=== PATIENT | female | born 1965 | race Caucasian/White ===

== ENCOUNTER 2016-11-27 10:29 | Emergency (ER) | payer OTHER ==
[2016-11-27] MEDS ORDERED: NITROSTAT SL PRN (10:39)
--- NOTE | 2016-11-27 10:42 | DR.GENAD ---
HPI - Complaint/Symptoms Chief Complaint Doctors Comments: Patient presented to the ED secondary to sharp pain in the chest she denies having cardiopulmonary disease. She was seen by hse specialist Dr Flaherty and had a cath one year ago and everything was fine. She admits to right ear pain PMH - PMH Past Medical History: Diabetes Past Surgical History: Yes Surgical History: [employer] Surgery, Tonsillectomy - Family History Family Medical History: Cancer - Social History Do you use any recreational Drugs:: No ROS - Review of Systems Constitutional: negative: Chills Eyes: No Symptoms Reported ENTM: No Symptoms Reported Respiratoy: No Symptoms Reported Cardiovascular: No Symptoms Reported Gastrointestinal/Abdominal: No Symptoms Reported Genitourinary: No Symptoms Reported Neurological: No Symptoms Reported Musculoskeletal: Chest wall, Other (right ear) Integumentary: No Symptoms Reported Hematologic/Lymphatic: No Symptoms Reported Endocrine: No Symptoms Reported Psychiatric: No Symptoms Reported All Other Systems: Reviewed and Negative PE - Vital Signs Vitals: Temperature 97.7 F Pulse Rate 89 Respiratory Rate 22 Blood Pressure 145/87 O2 Sat by Pulse Oximetry 99 - General Limitations: No Limitations General Appearance: Alert, In No Apparent Distress - Head Head Exam: Normal Inspection, Atraumatic - Eyes Eye exam: Normal Appearance, PERRL, EOMI - ENT ENT Exam: Normal Exam External Ear Exam: Normal External Inspection TM/Canal Exam: Bilateral Normal Nose Exam: Normal Nose Exam Mouth Exam: Normal Inspection Throat Exam: Normal Inspection - Neck Neck Exam: Normal Inspection - Chest Chest Inspection: Normal Inspection - Respiratory Respiratory Exam: Normal Lung Sounds Bilat Respiratory Exam: Bilateral Clear to Auscultation - Cardiovascular Cardiovascular Exam: Regular Rate, Normal Rhythm - Abdominal Exam Abdominal Exam: Normal Inspection, Normal Bowel Sounds Abdominal Tenderness: negative: RUQ, RLQ, LUQ, LLQ, Epigastrium, Suprapubic, Diffuse, Mild, Moderate, Severe, Other - Extremities Extremities Exam: Normal Inspection - Back Back Exam: Normal Inspection, Full ROM - Neurologic Neurological Exam: Alert, Oriented X3, CN II-XII Intact - Psychiatric Psychiatric Exam: Normal Affect, Normal Mood - Skin Skin Exam: Warm, Dry, Intact Course - Reevaluation 1st: Improved ROR - Labs Reviewed Laboratory Results Reviewed?: Yes (Strep positive) Result Diagrams: 11/27/16 10:50 11/27/16 10:50 Laboratory: WBC 5.0 X10^3/uL (3.6-10.0) 11/27/16 10:50 RBC 4.78 X10^6/uL (3.5-5.4) 11/27/16 10:50 Hgb 14.3 g/dL (12.0-16.0) 11/27/16 10:50 Hct 42.5 % (36.0-47.0) 11/27/16 10:50 MCV 88.9 fL (80.0-100.0) 11/27/16 10:50 MCH 29.8 pg (27.0-34.0) 11/27/16 10:50 MCHC 33.6 g/dL (33.0-35.0) 11/27/16 10:50 RDW 14.4 % (11.6-16.5) 11/27/16 10:50 Plt Count 146 X10^3/uL (150.0-450.0) L 11/27/16 10:50 MPV 10.1 fL (7.4-11.0) 11/27/16 10:50 Neut % 60.4 % (42.0-75.0) 11/27/16 10:50 Lymph % 26.5 % (21.0-51.0) 11/27/16 10:50 [place] % 10.4 % (0.0-13.0) 11/27/16 10:50 Eos % 1.9 % (0.9-2.9) 11/27/16 10:50 Baso % 0.8 % (0.2-1.0) 11/27/16 10:50 Neut # 3.0 x10^3/uL (2.2-4.8) 11/27/16 10:50 Lymph # 1.3 X10^3/uL (1.3-2.9) 11/27/16 10:50 [place] # 0.5 x10^3/uL (0.3-0.8) 11/27/16 10:50 Eos # 0.1 x10^3/uL (0.0-0.2) 11/27/16 10:50 Baso # 0.0 X10^3/uL (0.0-0.1) 11/27/16 10:50 Absolute Nucleated RBC 0.2 /100WBC 11/27/16 10:50 Sodium 135 mmol/L (136-145) L 11/27/16 10:50 Corrected Sodium 141 mmol/L (136-145) 11/27/16 10:50 Potassium 4.4 mmol/L (3.5-5.1) 11/27/16 10:50 Chloride 99 mmol/L (98-107) 11/27/16 10:50 Carbon Dioxide 32.6 mmol/L (21-32) H 11/27/16 10:50 BUN 9 mg/dL (7-18) 11/27/16 10:50 Creatinine 0.84 mg/dL (0.55-1.02) 11/27/16 10:50 Est GFR (MDRD) Af Amer > 60 (>60) 11/27/16 10:50 Est GFR (MDRD) Non-Af > 60 (>60) 11/27/16 10:50 Glucose 354 mg/dL (65-99) H 11/27/16 10:50 Calcium 9.2 mg/dL (8.5-10.1) 11/27/16 10:50 Corrected Calcium 10.0 mg/dL (8.5-10.1) 11/27/16 10:50 Total Bilirubin 0.60 mg/dL (0.2-1.0) 11/27/16 10:50 AST 55 Units/L (15-37) H 11/27/16 10:50 ALT 49 Units/L (12-78) 11/27/16 10:50 Alkaline Phosphatase 86 Units/L (46-116) 11/27/16 10:50 Total Protein 7.9 g/dL (6.4-8.2) 11/27/16 10:50 Albumin 3.0 g/dL (3.4-5.0) L 11/27/16 10:50 Globulin 4.9 g/dL (2.5-4.5) H 11/27/16 10:50 Albumin/Globulin Ratio 0.6 Ratio (1.1-2.1) L 11/27/16 10:50 Specimen Type Catherized urine 11/27/16 11:43 Urine Color Yellow (YELLOW) 11/27/16 11:43 Urine Appearance Clear (CLEAR) 11/27/16 11:43 Urine pH 6.5 (5.0 - 8.0) 11/27/16 11:43 Ur Specific [place] 1.015 (1.000-1.030) 11/27/16 11:43 Urine Protein 2+ (NEGATIVE) 11/27/16 11:43 Urine Glucose (UA) 4+ (NEGATIVE) 11/27/16 11:43 Urine Ketones Negative (NEGATIVE) 11/27/16 11:43 Urine Occult Blood 4+ (NEGATIVE) 11/27/16 11:43 Urine Nitrite Negative (NEGATIVE) 11/27/16 11:43 Urine Bilirubin Negative (NEGATIVE) 11/27/16 11:43 Urine Urobilinogen 1+ (NORMAL) 11/27/16 11:43 Ur Leukocyte Esterase Negative (NEGATIVE) 11/27/16 11:43 Urine RBC 5-8 /HPF (NEGATIVE) 11/27/16 11:43 Urine WBC None seen /HPF (NEGATIVE) 11/27/16 11:43 Ur Squamous Epith Cells Many /HPF (NEGATIVE) 11/27/16 11:43 Amorphous Sediment 1+ /HPF (NEGATIVE) 11/27/16 11:43 Urine Bacteria Negative /HPF (NEGATIVE) 11/27/16 11:43 Urine Mucus Few /HPF (NEGATIVE) 11/27/16 11:43 Ur Culture Indicated? No/not indicated 11/27/16 11:43 Streptococcus Screen Positive (NEGATIVE) A 11/27/16 11:01 - XRAY XRAY Interpreted by: Radiologist (The portable AP erect chest labeled 11:18am shows the cardiac silhouette to be enlarged. The pulmonary vasculature is congested compatible with moderate fluid overload. No overt interstitial edema nor pleural effusion is seen. No consolidation. Impression: cardiomegaly with CHF, no pneumonia or pleural effusion is seen.) - Diagnosis Discharge Problem: CHF (congestive heart failure) Qualifiers: Congestive heart failure type: unspecified congestive heart failure type Congestive heart failure chronicity: chronic Qualified Code(s): I50.9 - Heart failure, unspecified Pharyngitis Qualifiers: Pharyngitis/tonsillitis etiology: streptococcus Qualified Code(s): J02.0 - Streptococcal pharyngitis Otitis externa of right ear Qualifiers: Otitis externa type: unspecified type Chronicity: acute Qualified Code(s): H60.501 - Unspecified acute noninfective otitis externa, right ear - Discharge Plan Condition: Stable - Follow ups/Referrals Follow ups/Referrals: JUAN CARLOS VEGA [Nurse Practitioner] - 3 days - Instructions
[2016-11-27 10:47] VITALS: BP 145/87; BMI 70.8
[2016-11-27] MEDS ORDERED: ASPIRIN ONE (10:50)
[2016-11-27] MEDS ORDERED: ASPIRIN PO SCH (11:00)
[2016-11-27 11:06] LABS: BASOPHILS % (AUTO) 0.8 % (0.2-1.0); EOSINOPHILS # (AUTO) 0.1 x10^3/uL (0.0-0.2); EOSINOPHILS % (AUTO) 1.9 % (0.9-2.9); HEMATOCRIT 42.5 % (36.0-47.0); HEMOGLOBIN 14.3 g/dL (12.0-16.0); LYMPHOCYTES # (AUTO) 1.3 X10^3/uL (1.3-2.9); LYMPHOCYTES % (AUTO) 26.5 % (21.0-51.0); MEAN CORPUSCULAR HEMOGLOBIN 29.8 pg (27.0-34.0); MEAN CORPUSCULAR HGB CONC 33.6 g/dL (33.0-35.0); MEAN CORPUSCULAR VOLUME 88.9 fL (80.0-100.0); MEAN PLATELET VOLUME 10.1 fL (7.4-11.0); MONOCYTES # (AUTO) 0.5 x10^3/uL (0.3-0.8); MONOCYTES % (AUTO) 10.4 % (0.0-13.0); NEUTROPHILS % (AUTO) 60.4 % (42.0-75.0); PLATELET COUNT 146 X10^3/uL (150.0-450.0); RED BLOOD COUNT 4.78 X10^6/uL (3.5-5.4); RED CELL DISTRIBUTION WIDTH 14.4 % (11.6-16.5)
[2016-11-27] MEDS ORDERED: ZOFRAN INJ 4 MG VIAL IVP ONE (11:19)
[2016-11-27] MEDS ORDERED: ZOFRAN INJ 4 MG VIAL ONE (11:26)
[2016-11-27 11:27] LABS: ALANINE AMINOTRANSFERASE 49 Units/L (12-78); ALKALINE PHOSPHATASE 86 Units/L (46-116); ASPARTATE AMINO TRANSFERASE 55 Units/L (15-37); BLOOD UREA NITROGEN 9 mg/dL (7-18); CALCIUM 9.2 mg/dL (8.5-10.1); CARBON DIOXIDE 32.6 mmol/L (21-32); CHLORIDE 99 mmol/L (98-107); COR NA(FOR HYPERGLY) 141 mmol/L (136-145); CREATININE 0.84 mg/dL (0.55-1.02); SODIUM 135 mmol/L (136-145); TOTAL PROTEIN 7.9 g/dL (6.4-8.2); eGFR BLACK RACES > 60 (>60); eGFR NON BLACK RACES > 60 (>60)
--- NOTE | 2016-11-27 11:41 | RAD ---
History: Arrhythmia Study: Portable chest, comparison none Findings: Portable AP erect chest, comparison none Impression: Portable AP erect chest labeled 11:18 a.m. shows the cardiac silhouette to be enlarged. T he pulmonary vasculature is congested compatible with moderate fluid overload. No overt interstitial edema nor pleural effusion is seen. No consolidation is evident. No acute osseous abnormality is seen. Impression: 1. Cardiomegaly with CHF. 2. No pneumonia or pleural effusion is seen. Reported By:
[2016-11-27 12:10] LABS: BILIRUBIN,URINE NEGATIVE (NEGATIVE); BLOOD/HEMOGLOBIN,URINE 4+ (NEGATIVE); GLUCOSE, URINE 4+ (NEGATIVE); KETONES,URINE NEGATIVE (NEGATIVE); LEUKOCYTE ESTERASE ,URINE NEGATIVE (NEGATIVE); NITRITES,URINE NEGATIVE (NEGATIVE); PH,URINE 6.5 (5.0 - 8.0); PROTEIN,URINE 2+ (NEGATIVE); UROBILINOGEN,URINE 1+ (NORMAL)
[2016-11-27 12:18] LABS: APPEARANCE,URINE CLEAR (CLEAR); BACTERIA,URINE NEGATIVE /HPF (NEGATIVE); COLOR,URINE YELLOW (YELLOW); SQUAMOUS EPITHELIAL CELL,UR MANY /HPF (NEGATIVE)
[2016-11-27 12:19] LABS: AMORPHOUS SEDIMENT,UR 1+ /HPF (NEGATIVE); MUCUS,URINE FEW /HPF (NEGATIVE)
[2016-11-27] MEDS ORDERED: BICILLIN L-A IM ONE ×2 (13:13→13:30)
== END 2016-11-27 13:49 | disposition home or self-care (01) ==
LOC: ER 10:41
DX: I50.9 Heart failure, unspecified (principal); J02.0 Streptococcal pharyngitis; H60.501 Unspecified acute noninfective otitis externa, right ear; I51.7 Cardiomegaly
CPT/HCPCS: 36415; 71010; 80053; 81001; 85025; 87880; 93005; 93010; 96372; 99282; 99283; A4222; J0570; J2405

== ENCOUNTER 2019-08-26 17:49 | Inpatient (IN) ==
[2019-08-26] MEDS ORDERED: NS 1000 ML 1,000 ML ONE (18:06)
[2019-08-26] MEDS ORDERED: NS 1000 ML 1,000 ML IV ONE (18:10)
[2019-08-26] MEDS ORDERED: ZOFRAN INJ 4 MG VIAL IVP ONE (18:10)
[2019-08-26] MEDS ORDERED: ZOFRAN INJ 4 MG VIAL ONE (18:15)
[2019-08-26 18:25] LABS: ABG BASE EXCESS 2.3 mmol/L (-2.0-2.0)
[2019-08-26 18:26] LABS: ABG ALLEN TEST POS
[2019-08-26] MEDS ORDERED: TYLENOL 500 MG TAB EXTRA STRENGTH PO ONE (18:40)
[2019-08-26] MEDS ORDERED: ROCEPHIN VIAL 2 GRAMS IV ONE (18:57)
--- NOTE | 2019-08-26 18:58 | RAD ---
HISTORYSOBSTUDYCHEST, 1 VIEWCOMPARISONOctober [id number] trachea is midline. The cardiac silhouette is enlarged. Increased interstitial markings and bronchial wall thickening are noted. Left perihilar and left basilar infiltrate cannot be excludedIMPRESSIONCardiomegaly.Questionable left perihilar and left basilar infiltrate. Correlate clinically.Electronically signed by: JOEY ROWELL (Aug 26, 2019 18:57:26)
[2019-08-26] MEDS ORDERED: NS 100 ML IV + SPIKE MINIBAG* 100 ML IV ONE (19:02)
[2019-08-26] MEDS ORDERED: ROCEPHIN VIAL 2 GRAMS ONE (19:02)
[2019-08-26 19:21] LABS: BILIRUBIN,URINE 2+ (NEGATIVE); BLOOD/HEMOGLOBIN,URINE 3+ (NEGATIVE); GLUCOSE, URINE 4+ (NEGATIVE); KETONES,URINE 2+ (NEGATIVE); LEUKOCYTE ESTERASE ,URINE 1+ (NEGATIVE); NITRITES,URINE POSITIVE (NEGATIVE); PROTEIN,URINE 4+ (NEGATIVE); UROBILINOGEN,URINE 2+ (NORMAL)
[2019-08-26 19:36] LABS: BASOPHILS % (AUTO) 0.3 % (0.2-1.0); HEMATOCRIT 42.5 % (36.0-47.0); HEMOGLOBIN 14.5 g/dL (12.0-16.0); LYMPHOCYTES # (AUTO) 0.4 X10^3/uL (1.3-2.9); LYMPHOCYTES % (AUTO) 5.7 % (21.0-51.0); MEAN CORPUSCULAR HEMOGLOBIN 30.4 pg (27.0-34.0); MEAN CORPUSCULAR HGB CONC 34.1 g/dL (33.0-35.0); MEAN CORPUSCULAR VOLUME 89.1 fL (80.0-100.0); MEAN PLATELET VOLUME 9.7 fL (7.4-11.0); MONOCYTES # (AUTO) 0.4 x10^3/uL (0.3-0.8); MONOCYTES % (AUTO) 6.6 % (0.0-13.0); NEUTROPHILS # (AUTO) 5.9 x10^3/uL (2.2-4.8); NEUTROPHILS % (AUTO) 87.4 % (42.0-75.0); PLATELET COUNT 100 X10^3/uL (150.0-450.0); RED BLOOD COUNT 4.77 X10^6/uL (3.5-5.4); RED CELL DISTRIBUTION WIDTH 15.4 % (11.6-16.5); WHITE BLOOD COUNT 6.7 X10^3/uL (3.6-10.0)
[2019-08-26 19:48] LABS: APPEARANCE,URINE SLIGHTLY HAZY (CLEAR); COLOR,URINE AMBER (YELLOW)
[2019-08-26 19:49] LABS: BLOOD UREA NITROGEN 18 mg/dL (7-18); CARBON DIOXIDE 24.3 mmol/L (21-32); CHLORIDE 95 mmol/L (98-107); COR NA(FOR HYPERGLY) 137 mmol/L (136-145); CREATININE 0.98 mg/dL (0.55-1.02); SODIUM 130 mmol/L (136-145); TROPONIN I 0.02 ng/mL (0-1.5); eGFR NON BLACK RACES > 60 (>60)
[2019-08-26 19:49] LABS: SQUAMOUS EPITHELIAL CELL,UR FEW /HPF (NEGATIVE)
[2019-08-26 19:50] LABS: BACTERIA,URINE 1+ /HPF (NEGATIVE)
[2019-08-26 19:54] LABS: ALANINE AMINOTRANSFERASE 26 Units/L (12-78); ALBUMIN 2.9 g/dL (3.4-5.0); ALKALINE PHOSPHATASE 102 Units/L (46-116); ASPARTATE AMINO TRANSFERASE 47 Units/L (15-37); CKMB % 1.3 % (<4); COR CA(FOR HYPOALB) 9.9 mg/dL (8.5-10.1); CREATINE KINASE 80 Units/L (26-192); CREATINE KINASE MB < 1.0 ng/mL (0-4.0); LACTIC ACID 3.2 mmol/L (0.4-2.0); MAGNESIUM 1.4 mg/dL (1.7-2.9); TOTAL PROTEIN 8.1 g/dL (6.4-8.2)
[2019-08-26 20:29] LABS: MYCOPLASMA PNEUMONIAE IGM AB NEGATIVE (NEGATIVE)
--- NOTE | 2019-08-26 21:33 | DR.GENAD ---
HPI <Wiley Downs - Last Filed: 08/29/19 08:25> Time Seen Time Seen by Provider: 08/26/19 18:03 PCP Primary Care Physician: MARCELINO MACKEY Comment HPI Comment: Came hyperventilating, febrie, with nausea, diarrhea, weakness, loss of sense of taste, sister also is sick. Complaint/Symptoms Chief Complaint:: PT. C/O NAUSEA, DIARRHEA, FEVER, WEAKNESS AND GENERALIZED BODY ACHES. PT. DROWSY AT TIME OF TRIAGE AND UNABLE TO HOLD HER HEAD UP DUE TO WEAKNESS. SISTER STATES PT. HAS NOT BEEN EATING TODAY AND HAS LOST HER SENSE OF TASTE. COVID-19 Coronavirus risk:travel/contact w/high risk person: No Has patient experienced Coronavirus symptoms: Yes Coronavirus symptoms experienced: Fever Source History Provided: Patient Mode of Arrival Mode of Arrival: Wheelchair Timing Onset of Chief Complaint: 08/18/19 PMH <Wiley Downs - Last Filed: 08/29/19 08:25> PMH Past Medical History: Yes Past Medical History: Diabetes Past Surgical History: Yes Surgical History: [employer] Surgery and Tonsillectomy Family History History of Family Medical Conditions: Yes Family Medical History: Cancer Social History Does patient currently use any type of tobacco product: No Have you used tobacco products in the last 12 months: No Type of Tobacco Use: None Does any household member use tobacco: No Alcohol Use: None Do you use any recreational Drugs:: No Lives With: Family Lives Where: Home Travel Risk Coronavirus risk:travel/contact w/high risk person: No Has patient experienced Coronavirus symptoms: Yes Coronavirus symptoms experienced: Fever Infectious screening In the last 2 months have you had wt loss of >10#?: NO Have you had fever, night sweats or hemotysis?: No Have you traveled outside the country in the last 6 months?: No Isolation: Standard ROS <Wiley Downs - Last Filed: 08/29/19 08:25> Review of Systems Constitutional: See HPI Eyes: No Symptoms Reported ENTM: No Symptoms Reported Respiratoy: See HPI Cardiovascular: No Symptoms Reported Gastrointestinal/Abdominal: See HPI Genitourinary: No Symptoms Reported Neurological: No Symptoms Reported Musculoskeletal: No Symptoms Reported Integumentary: No Symptoms Reported Hematologic/Lymphatic: No Symptoms Reported Endocrine: No Symptoms Reported Psychiatric: No Symptoms Reported All Other Systems: Reviewed and Negative PE <Wiley Downs - Last Filed: 08/29/19 08:25> Vital Signs Vitals: Temperature 103 F Pulse Rate 143 Respiratory Rate 33 Blood Pressure [Left Arm] 133/80 Blood Pressure 151/68 O2 Sat by Pulse Oximetry 94 General Limitations: No Limitations General Appearance: Alert, Anxious, In Distress and Obese (Morbidly) Head Head Exam: Normal Inspection Eyes Eye exam: Normal Appearance ENT ENT Exam: Normal Exam and Mucous Membranes Dry External Ear Exam: Normal External Inspection TM/Canal Exam: Bilateral: Normal Nose Exam: Normal Nose Exam Mouth Exam: Normal Inspection Throat Exam: Normal Inspection Neck Neck Exam: Normal Inspection Chest Chest Inspection: Normal Inspection and Symmetric Chest Wall Rise Respiratory Respiratory Exam: Normal Lung Sounds Bilat, Accessory Muscle Use and Respiratory Distress Respiratory Exam: Bilateral: Clear to Auscultation Cardiovascular Cardiovascular Exam: Regular Rate and Normal Rhythm Abdominal Exam Abdominal Exam: Normal Inspection, Normal Bowel Sounds and Soft; negative D istention, Tenderness, Guarding, Rebound and Rigidity Extremities Extremities Exam: Normal Inspection; negative Edema Back Back Exam: Normal Inspection Neurologic Neurological Exam: Alert, Oriented X3 and CN II-XII Intact Psychiatric Psychiatric Exam: Normal Affect and Normal Mood Skin Skin Exam: Warm, Dry, Intact and Normal Color <Shawnee Driver - Last Filed: 08/26/19 23:46> Vital Signs Vitals: Temperature 103 F Pulse Rate 143 Respiratory Rate 33 Blood Pressure [Left Arm] 133/80 Blood Pressure 151/68 O2 Sat by Pulse Oximetry 94 COURSE <Wiley Downs - Last Filed: 08/29/19 08:25> Treatment Treatment: Awaiting remaining labs and radiology. Patient fits sepsis criteria, initial Lactate drawn, fluid bolus given, cultures and empiric Rocephin ordered. Care for patient endorsed to Dr. Driver at 9:00PM. <Shawnee Driver - Last Filed: 08/26/19 23:46> Treatment Treatment: [address] Carlisle Consultation Consultation Comments: s/w Dr Michaels who accepts admission ROR <Michaelgelacio Maejose a - Last Filed: 08/29/19 08:25> Labs Reviewed Result Diagrams: 08/29/19 04:59 08/29/19 04:59 Laboratory: 08/26/19 18:49 Urine,Catheterized Urine Culture - Final Klebsiella Pneumoniae 08/26/19 20:10 Blood Blood Culture - Preliminary 08/26/19 18:20 Blood Blood Culture - Preliminary WBC 6.7 X10^3/uL (3.6-10.0) 08/26/19 18:20 RBC 4.77 X10^6/uL (3.5-5.4) 08/26/19 18:20 Hgb 14.5 g/dL (12.0-16.0) 08/26/19 18:20 Hct 42.5 % (36.0-47.0) 08/26/19 18:20 MCV 89.1 fL (80.0-100.0) 08/26/19 18:20 MCH 30.4 pg (27.0-34.0) 08/26/19 18:20 MCHC 34.1 g/dL (33.0-35.0) 08/26/19 18:20 RDW 15.4 % (11.6-16.5) 08/26/19 18:20 Plt Count 100 X10^3/uL (150.0-450.0) L 08/26/19 18:20 MPV 9.7 fL (7.4-11.0) 08/26/19 18:20 Neut % (Auto) 87.4 % (42.0-75.0) H 08/26/19 18:20 Lymph % (Auto) 5.7 % (21.0-51.0) L 08/26/19 18:20 [place] % (Auto) 6.6 % (0.0-13.0) 08/26/19 18:20 Eos % (Auto) 0.0 % (0.9-2.9) L 08/26/19 18:20 Baso % (Auto) 0.3 % (0.2-1.0) 08/26/19 18:20 Neut # (Auto) 5.9 x10^3/uL (2.2-4.8) H 08/26/19 18:20 Lymph # (Auto) 0.4 X10^3/uL (1.3-2.9) L 08/26/19 18:20 [place] # (Auto) 0.4 x10^3/uL (0.3-0.8) 08/26/19 18:20 Eos # (Auto) 0.0 x10^3/uL (0.0-0.2) 08/26/19 18:20 Baso # (Auto) 0.0 X10^3/uL (0.0-0.1) 08/26/19 18:20 Absolute Nucleated RBC 0.2 /100WBC 08/26/19 18:20 Sample Site Rr 08/26/19 18:15 ABG pH 7.500 (7.35-7.45) H 08/26/19 18:15 ABG pCO2 32.0 mmHg (35.0-45.0) L 08/26/19 18:15 ABG pO2 63.0 mmHg (80.0-100.0) L 08/26/19 18:15 ABG HCO3 25.0 mmol/L (22-26) 08/26/19 18:15 ABG O2 Saturation 94.0 % (90-100) 08/26/19 18:15 ABG Base Excess 2.3 mmol/L (-2.0-2.0) H 08/26/19 18:15 [place] Test Pos 08/26/19 18:15 A-a Gradient 47.0 mmHg 08/26/19 18:15 FiO2 21.0 08/26/19 18:15 Blood Gas Comments Pt demetria well. elj/cdn 08/26/19 18:15 Sodium 130 mmol/L (136-145) L 08/26/19 19:25 Corrected Sodium 137 mmol/L (136-145) 08/26/19 19:25 Potassium 4.4 mmol/L (3.5-5.1) 08/26/19 19:25 Chloride 95 mmol/L (98-107) L 08/26/19 19:25 Carbon Dioxide 24.3 mmol/L (21-32) 08/26/19 19:25 BUN 18 mg/dL (7-18) 08/26/19 19:25 Creatinine 0.98 mg/dL (0.55-1.02) 08/26/19 19:25 Est GFR (MDRD) Af Amer > 60 (>60) 08/26/19 19:25 Est GFR (MDRD) Non-Af > 60 (>60) 08/26/19 19:25 Glucose 401 mg/dL (65-99) H 08/26/19 19:25 Lactic Acid 3.2 mmol/L (0.4-2.0) H 08/26/19 19:25 Calcium 9.0 mg/dL (8.5-10.1) 08/26/19 19:25 Corrected Calcium 9.9 mg/dL (8.5-10.1) 08/26/19 19:25 Magnesium 1.4 mg/dL (1.7-2.9) L 08/26/19 19:25 Total Bilirubin 2.40 mg/dL (0.2-1.0) H 08/26/19 19:25 AST 47 Units/L (15-37) H 08/26/19 19:25 ALT 26 Units/L (12-78) 08/26/19 19:25 Alkaline Phosphatase 102 Units/L (46-116) 08/26/19 19:25 Creatine Kinase 80 Units/L (26-192) 08/26/19 19:25 CK-MB (CK-2) < 1.0 ng/mL (0-4.0) 08/26/19 19:25 CK/CKMB % Calc 1.3 % (<4) 08/26/19 19:25 Troponin I 0.02 ng/mL (0-1.5) 08/26/19 19:25 Total Protein 8.1 g/dL (6.4-8.2) 08/26/19 19:25 Albumin 2.9 g/dL (3.4-5.0) L 08/26/19 19:25 Globulin 5.2 g/dL (2.5-4.5) H 08/26/19 19:25 Albumin/Globulin Ratio 0.6 Ratio (1.1-2.1) L 08/26/19 19:25 Specimen Type Catherized urine 08/26/19 18:49 Urine Color [place] (YELLOW) 08/26/19 18:49 Urine Appearance Slightly hazy (CLEAR) 08/26/19 18:49 Urine pH 6.0 (5.0 - 8.0) 08/26/19 18:49 Ur Specific [place] 1.015 (1.000-1.030) 08/26/19 18:49 Urine Protein 4+ (NEGATIVE) 08/26/19 18:49 Urine Glucose (UA) 4+ (NEGATIVE) 08/26/19 18:49 Urine Ketones 2+ (NEGATIVE) 08/26/19 18:49 Urine Occult Blood 3+ (NEGATIVE) 08/26/19 18:49 Urine Nitrite Positive (NEGATIVE) 08/26/19 18:49 Urine Bilirubin 2+ (NEGATIVE) 08/26/19 18:49 Urine Urobilinogen 2+ (NORMAL) 08/26/19 18:49 Ur Leukocyte Esterase 1+ (NEGATIVE) 08/26/19 18:49 Urine RBC 3-5 /HPF (0-3) A 08/26/19 18:49 Urine WBC 3-5 /HPF (0-5) 08/26/19 18:49 Ur Squamous Epith Cells Few /HPF (NEGATIVE) 08/26/19 18:49 Urine Bacteria 1+ /HPF (NEGATIVE) 08/26/19 18:49 Ur Culture Indicated? Yes/culture set up 08/26/19 18:49 Influenza Type A Ag Negative-presumptive (NEGATIVE) 08/26/19 18:48 Influenza Type B Ag Negative-presumptive (NEGATIVE) 08/26/19 18:48 Mycoplasma pneumon IgG Negative (NEGATIVE) 08/26/19 19:25 SARS-CoV-2 (PCR) Negative (NEGATIVE) 08/26/19 18:35 EKG [place]: Normal Rhythm: NSR Block: None Hypertrophy: None ST: Normal <Shawnee Driver - Last Filed: 08/26/19 23:46> Labs Reviewed Laboratory Results Reviewed?: Yes Laboratory: 08/26/19 18:49 Urine,Catheterized Urine Culture - Final Klebsiella Pneumoniae 08/26/19 20:10 Blood Blood Culture - Preliminary 08/26/19 18:20 Blood Blood Culture - Preliminary WBC 6.7 X10^3/uL (3.6-10.0) 08/26/19 18:20 RBC 4.77 X10^6/uL (3.5-5.4) 08/26/19 18:20 Hgb 14.5 g/dL (12.0-16.0) 08/26/19 18:20 Hct 42.5 % (36.0-47.0) 08/26/19 18:20 MCV 89.1 fL (80.0-100.0) 08/26/19 18:20 MCH 30.4 pg (27.0-34.0) 08/26/19 18:20 MCHC 34.1 g/dL (33.0-35.0) 08/26/19 18:20 RDW 15.4 % (11.6-16.5) 08/26/19 18:20 Plt Count 100 X10^3/uL (150.0-450.0) L 08/26/19 18:20 MPV 9.7 fL (7.4-11.0) 08/26/19 18:20 Neut % (Auto) 87.4 % (42.0-75.0) H 08/26/19 18:20 Lymph % (Auto) 5.7 % (21.0-51.0) L 08/26/19 18:20 [place] % (Auto) 6.6 % (0.0-13.0) 08/26/19 18:20 Eos % (Auto) 0.0 % (0.9-2.9) L 08/26/19 18:20 Baso % (Auto) 0.3 % (0.2-1.0) 08/26/19 18:20 Neut # (Auto) 5.9 x10^3/uL (2.2-4.8) H 08/26/19 18:20 Lymph # (Auto) 0.4 X10^3/uL (1.3-2.9) L 08/26/19 18:20 [place] # (Auto) 0.4 x10^3/uL (0.3-0.8) 08/26/19 18:20 Eos # (Auto) 0.0 x10^3/uL (0.0-0.2) 08/26/19 18:20 Baso # (Auto) 0.0 X10^3/uL (0.0-0.1) 08/26/19 18:20 Absolute Nucleated RBC 0.2 /100WBC 08/26/19 18:20 Sample Site Rr 08/26/19 18:15 ABG pH 7.500 (7.35-7.45) H 08/26/19 18:15 ABG pCO2 32.0 mmHg (35.0-45.0) L 08/26/19 18:15 ABG pO2 63.0 mmHg (80.0-100.0) L 08/26/19 18:15 ABG HCO3 25.0 mmol/L (22-26) 08/26/19 18:15 ABG O2 Saturation 94.0 % (90-100) 08/26/19 18:15 ABG Base Excess 2.3 mmol/L (-2.0-2.0) H 08/26/19 18:15 [place] Test Pos 08/26/19 18:15 A-a Gradient 47.0 mmHg 08/26/19 18:15 FiO2 21.0 08/26/19 18:15 Blood Gas Comments Pt demetria well. elj/cdn 08/26/19 18:15 Sodium 130 mmol/L (136-145) L 08/26/19 19:25 Corrected Sodium 137 mmol/L (136-145) 08/26/19 19:25 Potassium 4.4 mmol/L (3.5-5.1) 08/26/19 19:25 Chloride 95 mmol/L (98-107) L 08/26/19 19:25 Carbon Dioxide 24.3 mmol/L (21-32) 08/26/19 19:25 BUN 18 mg/dL (7-18) 08/26/19 19:25 Creatinine 0.98 mg/dL (0.55-1.02) 08/26/19 19:25 Est GFR (MDRD) Af Amer > 60 (>60) 08/26/19 19:25 Est GFR (MDRD) Non-Af > 60 (>60) 08/26/19 19:25 Glucose 401 mg/dL (65-99) H 08/26/19 19:25 Lactic Acid 3.2 mmol/L (0.4-2.0) H 08/26/19 19:25 Calcium 9.0 mg/dL (8.5-10.1) 08/26/19 19:25 Corrected Calcium 9.9 mg/dL (8.5-10.1) 08/26/19 19:25 Magnesium 1.4 mg/dL (1.7-2.9) L 08/26/19 19:25 Total Bilirubin 2.40 mg/dL (0.2-1.0) H 08/26/19 19:25 AST 47 Units/L (15-37) H 08/26/19 19:25 ALT 26 Units/L (12-78) 08/26/19 19:25 Alkaline Phosphatase 102 Units/L (46-116) 08/26/19 19:25 Creatine Kinase 80 Units/L (26-192) 08/26/19 19:25 CK-MB (CK-2) < 1.0 ng/mL (0-4.0) 08/26/19 19:25 CK/CKMB % Calc 1.3 % (<4) 08/26/19 19:25 Troponin I 0.02 ng/mL (0-1.5) 08/26/19 19:25 Total Protein 8.1 g/dL (6.4-8.2) 08/26/19 19:25 Albumin 2.9 g/dL (3.4-5.0) L 08/26/19 19:25 Globulin 5.2 g/dL (2.5-4.5) H 08/26/19 19:25 Albumin/Globulin Ratio 0.6 Ratio (1.1-2.1) L 08/26/19 19:25 Specimen Type Catherized urine 08/26/19 18:49 Urine Color [place] (YELLOW) 08/26/19 18:49 Urine Appearance Slightly hazy (CLEAR) 08/26/19 18:49 Urine pH 6.0 (5.0 - 8.0) 08/26/19 18:49 Ur Specific [place] 1.015 (1.000-1.030) 08/26/19 18:49 Urine Protein 4+ (NEGATIVE) 08/26/19 18:49 Urine Glucose (UA) 4+ (NEGATIVE) 08/26/19 18:49 Urine Ketones 2+ (NEGATIVE) 08/26/19 18:49 Urine Occult Blood 3+ (NEGATIVE) 08/26/19 18:49 Urine Nitrite Positive (NEGATIVE) 08/26/19 18:49 Urine Bilirubin 2+ (NEGATIVE) 08/26/19 18:49 Urine Urobilinogen 2+ (NORMAL) 08/26/19 18:49 Ur Leukocyte Esterase 1+ (NEGATIVE) 08/26/19 18:49 Urine RBC 3-5 /HPF (0-3) A 08/26/19 18:49 Urine WBC 3-5 /HPF (0-5) 08/26/19 18:49 Ur Squamous Epith Cells Few /HPF (NEGATIVE) 08/26/19 18:49 Urine Bacteria 1+ /HPF (NEGATIVE) 08/26/19 18:49 Ur Culture Indicated? Yes/culture set up 08/26/19 18:49 Influenza Type A Ag Negative-presumptive (NEGATIVE) 08/26/19 18:48 Influenza Type B Ag Negative-presumptive (NEGATIVE) 08/26/19 18:48 Mycoplasma pneumon IgG Negative (NEGATIVE) 08/26/19 19:25 SARS-CoV-2 (PCR) Negative (NEGATIVE) 08/26/19 18:35 XRAY XRAY Interpreted by: Radiologist X-ray Results: CXR: Cardiomegaly. Questionable left perihilar and left basilar infiltrate. Correlate clinically. Opioid <Wiley Downs - Last Filed: 08/29/19 08:25> Opioid Risk Tool Age (Gareth box if 16-45): No History of Preadolescent Sexual Abuse: No Total: 0 Total Score Risk Category: Low Risk Copyright: Dickson BECKER predicting aberrant behaviors <Shawnee Driver - Last Filed: 08/26/19 23:46> Opioid Risk Tool Total: 0 Total Score Risk Category: Low Risk <Wiley Downs - Last Filed: 08/29/19 08:25> Diagnosis Discharge Problem: Cystitis, Hypoxia, Hyponatremia Sepsis Qualifiers: Sepsis type: sepsis due to unspecified organism Sepsis acute organ dysfunction status: with acute organ dysfunction Severe sepsis acute organ dysfunction type: acute respiratory failure Acute respiratory failure type: with hypoxia Severe sepsis shock status: without septic shock Qualified Code(s): A41.9 - Sepsis, unspecified organism Pneumonia involving left lung Qualifiers: Pneumonia type: due to unspecified organism Lung location: lower lobe of lung Qualified Code(s): J18.9 - Pneumonia, unspecified organism
[2019-08-26] MEDS ORDERED: NS 100 ML IV 100 ML IV ONE (22:13)
[2019-08-26] MEDS ORDERED: ZOFRAN INJ 4 MG VIAL IVP PRN (23:17)
[2019-08-26] MEDS ORDERED: VIBRAMYCIN 100 MG in D5W 250 ML IV 250 ML IV SCH (23:45)
[2019-08-27] MEDS: NS 1000 ML 1,000 ML IV SCH ×4 (02:30→18:45)
[2019-08-27 05:31] LABS: BASOPHILS % (AUTO) 0.2 % (0.2-1.0); HEMATOCRIT 38.5 % (36.0-47.0); HEMOGLOBIN 12.7 g/dL (12.0-16.0); LYMPHOCYTES # (AUTO) 0.6 X10^3/uL (1.3-2.9); LYMPHOCYTES % (AUTO) 6.9 % (21.0-51.0); MEAN CORPUSCULAR HEMOGLOBIN 29.7 pg (27.0-34.0); MEAN CORPUSCULAR HGB CONC 32.9 g/dL (33.0-35.0); MEAN CORPUSCULAR VOLUME 90.1 fL (80.0-100.0); MEAN PLATELET VOLUME 10.1 fL (7.4-11.0); MONOCYTES # (AUTO) 0.7 x10^3/uL (0.3-0.8); MONOCYTES % (AUTO) 7.6 % (0.0-13.0); NEUTROPHILS # (AUTO) 7.9 x10^3/uL (2.2-4.8); NEUTROPHILS % (AUTO) 85.3 % (42.0-75.0); PLATELET COUNT 95 X10^3/uL (150.0-450.0); RED BLOOD COUNT 4.27 X10^6/uL (3.5-5.4); RED CELL DISTRIBUTION WIDTH 15.6 % (11.6-16.5); WHITE BLOOD COUNT 9.3 X10^3/uL (3.6-10.0)
[2019-08-27 05:48] LABS: ALANINE AMINOTRANSFERASE 23 Units/L (12-78); ALBUMIN 2.5 g/dL (3.4-5.0); ALKALINE PHOSPHATASE 78 Units/L (46-116); ASPARTATE AMINO TRANSFERASE 32 Units/L (15-37); BLOOD UREA NITROGEN 24 mg/dL (7-18); CALCIUM 8.4 mg/dL (8.5-10.1); CARBON DIOXIDE 28.6 mmol/L (21-32); COR CA(FOR HYPOALB) 9.6 mg/dL (8.5-10.1); CREATININE 0.89 mg/dL (0.55-1.02); TOTAL PROTEIN 7.3 g/dL (6.4-8.2); eGFR NON BLACK RACES > 60 (>60)
[2019-08-27] MEDS: HumuLIN R SC PRN ×4 (06:25→20:15)
[2019-08-27 06:41] LABS: CHLORIDE 98 mmol/L (98-107); COR NA(FOR HYPERGLY) 142 mmol/L (136-145); SODIUM 134 mmol/L (136-145)
[2019-08-27] MEDS: VIBRAMYCIN 100 MG in D5W 250 ML IV 250 ML IV SCH ×2 (09:02→20:15)
--- NOTE | 2019-08-27 09:31 | DR.H&P ---
H&P History & Physical for Day of: H&P Date: 08/27/19 Chief Complaint Chief Complaint: Fever, chills Shortness of breath, Weakness Allergies Allergies Allergy/AdvReac Type Severity Reaction Status Date / Time clarithromycin [From Biaxin] Allergy Verified 11/27/16 10:39 codeine Allergy Verified 11/27/16 10:39 latex Allergy Verified 11/27/16 10:39 History of Present Illness History of Present Illness: Pt is a 53 y/o f pmhx DMT2, Fibromyalgia, MDD prese nting after having fever, chills, shortness of breath, dysuria, diarrhea, body aches, loss of appetite and weakness since Sunday. She reports sx have worsened since then. Initial labs/imaging: Wbc 6.7>9.3, Hgb 14.5>12.7, Plt 100>95, Na 134, K 4.6, Cr 0.89, Gluc 439, T bilirubin 2.4>1.3, AST 47>32, ALT 26>23, AlkP 102>78, LA 3.2>1.3. AB.5/32/63/25/94% on RA. UA:+protein/glucose/ketones/ nitrite/ blood/ leukest/ wbc 3-5, UrineCx pending. Flu/Myco negative, COVID negative(08/25)>repeat pending, CXR: questionable L perihilar and L basilar infiltrate. Pt received IVF bolus in ED and was started on non-rebreather and IV antibiotics. Will check CRP, A1c and treat patient for pneumonia, UTI, and h yperglycemia. On examination she also has intertrigo, order nystatin powder. Continue IVF, SSI, Abx: Rocephin, supplemental O2, pneumonia protocol. Will continue to monitor and follow up labs/imaging in the morning. Past Medical History Past Medical History: Depression and Diabetes Past Surgical History Surgical History: Tonsillectomy Family History Family Medical History: Cancer and Hypertension Social History Does patient currently use any type of tobacco product: No Have you used tobacco products in the last 12 months: No Type of Tobacco Use: None Does any household member use tobacco: No Alcohol Use: None Drug Use: None Medications Home Medications: clarithromycin [From Biaxin] Allergy (Verified 10/02/17 10:39) codeine Allergy (Verified 11/27/16 10:39) latex Allergy (Verified 11/27/16 10:39) Labs Result Diagrams: 08/27/19 05:10 08/27/19 05:10 Labs: 08/26/19 18:49 Urine,Catheterized Urine Culture - Preliminary Laboratory WBC 9.3 X10^3/uL (3.6-10.0) 08/27/19 05:10 RBC 4.27 X10^6/uL (3.5-5.4) 08/27/19 05:10 Hgb 12.7 g/dL (12.0-16.0) 08/27/19 05:10 Hct 38.5 % (36.0-47.0) 08/27/19 05:10 MCV 90.1 fL (80.0-100.0) 08/27/19 05:10 MCH 29.7 pg (27.0-34.0) 08/27/19 05:10 MCHC 32.9 g/dL (33.0-35.0) L 08/27/19 05:10 RDW 15.6 % (11.6-16.5) 08/27/19 05:10 Plt Count 95 X10^3/uL (150.0-450.0) L 08/27/19 05:10 MPV 10.1 fL (7.4-11.0) 08/27/19 05:10 Neut % (Auto) 85.3 % (42.0-75.0) H 08/27/19 05:10 Lymph % (Auto) 6.9 % (21.0-51.0) L 08/27/19 05:10 [place] % (Auto) 7.6 % (0.0-13.0) 08/27/19 05:10 Eos % (Auto) 0.0 % (0.9-2.9) L 08/27/19 05:10 Baso % (Auto) 0.2 % (0.2-1.0) 08/27/19 05:10 Neut # (Auto) 7.9 x10^3/uL (2.2-4.8) H 08/27/19 05:10 Lymph # (Auto) 0.6 X10^3/uL (1.3-2.9) L 08/27/19 05:10 [place] # (Auto) 0.7 x10^3/uL (0.3-0.8) 08/27/19 05:10 Eos # (Auto) 0.0 x10^3/uL (0.0-0.2) 08/27/19 05:10 Baso # (Auto) 0.0 X10^3/uL (0.0-0.1) 08/27/19 05:10 Absolute Nucleated RBC 0.4 /100WBC 08/27/19 05:10 Sample Site Rr 08/26/19 18:15 ABG pH 7.500 (7.35-7.45) H 08/26/19 18:15 ABG pCO2 32.0 mmHg (35.0-45.0) L 08/26/19 18:15 ABG pO2 63.0 mmHg (80.0-100.0) L 08/26/19 18:15 ABG HCO3 25.0 mmol/L (22-26) 08/26/19 18:15 ABG O2 Saturation 94.0 % (90-100) 08/26/19 18:15 ABG Base Excess 2.3 mmol/L (-2.0-2.0) H 08/26/19 18:15 Eloy Test Pos 08/26/19 18:15 A-a Gradient 47.0 mmHg 08/26/19 18:15 FiO2 21.0 08/26/19 18:15 Blood Gas Comments Pt demetria well. elj/cdn 08/26/19 18:15 Sodium 134 mmol/L (136-145) L 08/27/19 05:10 Corrected Sodium 142 mmol/L (136-145) 08/27/19 05:10 Potassium 4.6 mmol/L (3.5-5.1) 08/27/19 05:10 Chloride 98 mmol/L (98-107) 08/27/19 05:10 Carbon Dioxide 28.6 mmol/L (21-32) 08/27/19 05:10 BUN 24 mg/dL (7-18) H 08/27/19 05:10 Creatinine 0.89 mg/dL (0.55-1.02) 08/27/19 05:10 Est GFR (MDRD) Af Amer > 60 (>60) 08/27/19 05:10 Est GFR (MDRD) Non-Af > 60 (>60) 08/27/19 05:10 Glucose 439 mg/dL (65-99) H 08/27/19 05:10 Lactic Acid 1.3 mmol/L (0.4-2.0) 08/27/19 06:31 Calcium 8.4 mg/dL (8.5-10.1) L 08/27/19 05:10 Corrected Calcium 9.6 mg/dL (8.5-10.1) 08/27/19 05:10 Magnesium 1.4 mg/dL (1.7-2.9) L 08/26/19 19:25 Total Bilirubin 1.30 mg/dL (0.2-1.0) H 08/27/19 05:10 AST 32 Units/L (15-37) 08/27/19 05:10 ALT 23 Units/L (12-78) 08/27/19 05:10 Alkaline Phosphatase 78 Units/L (46-116) 08/27/19 05:10 Creatine Kinase 80 Units/L (26-192) 08/26/19 19:25 CK-MB (CK-2) < 1.0 ng/mL (0-4.0) 08/26/19 19:25 CK/CKMB % Calc 1.3 % (<4) 08/26/19 19:25 Troponin I 0.02 ng/mL (0-1.5) 08/26/19 19:25 C-Reactive Protein 246.40 mg/L (0-3.0) H 08/27/19 05:10 Total Protein 7.3 g/dL (6.4-8.2) 08/27/19 05:10 Albumin 2.5 g/dL (3.4-5.0) L 08/27/19 05:10 Globulin 4.8 g/dL (2.5-4.5) H 08/27/19 05:10 Albumin/Globulin Ratio 0.5 Ratio (1.1-2.1) L 08/27/19 05:10 Specimen Type Catherized urine 08/26/19 18:49 Urine Color Merissa (YELLOW) 08/26/19 18:49 Urine Appearance Slightly hazy (CLEAR) 08/26/19 18:49 Urine pH 6.0 (5.0 - 8.0) 08/26/19 18:49 Ur Specific [place] 1.015 (1.000-1.030) 08/26/19 18:49 Urine Protein 4+ (NEGATIVE) 08/26/19 18:49 Urine Glucose (UA) 4+ (NEGATIVE) 08/26/19 18:49 Urine Ketones 2+ (NEGATIVE) 08/26/19 18:49 Urine Occult Blood 3+ (NEGATIVE) 08/26/19 18:49 Urine Nitrite Positive (NEGATIVE) 08/26/19 18:49 Urine Bilirubin 2+ (NEGATIVE) 08/26/19 18:49 Urine Urobilinogen 2+ (NORMAL) 08/26/19 18:49 Ur Leukocyte Esterase 1+ (NEGATIVE) 08/26/19 18:49 Urine RBC 3-5 /HPF (0-3) A 08/26/19 18:49 Urine WBC 3-5 /HPF (0-5) 08/26/19 18:49 Ur Squamous Epith Cells Few /HPF (NEGATIVE) 08/26/19 18:49 Urine Bacteria 1+ /HPF (NEGATIVE) 08/26/19 18:49 Ur Culture Indicated? Yes/culture set up 08/26/19 18:49 Influenza Type A Ag Negative-presumptive (NEGATIVE) 08/26/19 18:48 Influenza Type B Ag Negative-presumptive (NEGATIVE) 08/26/19 18:48 Mycoplasma pneumon IgG Negative (NEGATIVE) 08/26/19 19:25 SARS-CoV-2 (PCR) Negative (NEGATIVE) 08/26/19 18:35 Review of Systems Constitutional: Fever, Chills and Weakness Eyes: No Symptoms Reported ENT: No Symptoms Reported Respiratory: Shortness of Breath Cardiovascular: No Symptoms Reported Gastrointestinal: Nausea, Vomiting, Abdominal Pain and Diarrhea Genitourinary: Dysuria Musculoskeletal: No Symptoms Reported Skin: Rash (lower abdominal folds ) Neurological: No Symptoms Reported Physical Exam Vital Signs: Temperature 97.8 F Pulse Rate 88 Respiratory Rate 20 Blood Pressure [Left Arm] 133/80 Blood Pressure 109/59 O2 Sat by Pulse Oximetry 100 Oriented: Normal Eyes: Normal Ear: Normal Nose: Normal Throat: Normal Respiratory: Diminished Throughout Cardiovascular: Normal : Dysuria Auscultation: Bowel Sounds: Normal Palpation: Normal Tenderness: Normal Skin: Rash (lower abdominal folds) Musculoskeletal: Normal Psychiatric: Normal Mood Description: Calm Speech Pattern: Clear Assessment/Plan (1) Pneumonia: Status: Acute Plan: Repeat COVID pending Pneumonia protocol, supplemental O2 (2) Cystitis: Status: Acute Plan: Rocephin UrineCx pending (3) Intertrigo: Status: Acute Plan: Nystatin powder (4) Diabetes mellitus: Status: Acute Plan: SSI, A1c pending (5) Hypoxia: Status: Acute (6) Hyperglycemia: Status: Acute Review H&P Reviewed: Yes Patient was examined?: Yes
[2019-08-27] MEDS: TYLENOL 500 MG TAB EXTRA STRENGTH PO PRN ×2 (09:53→18:46)
[2019-08-27 10:49] VITALS: BMI 60.2
[2019-08-27] MEDS: ULTRAM PO PRN ×2 (13:52→21:00)
[2019-08-27] MEDS: NYSTATIN POWDER TOP SCH ×2 (13:56→20:14)
[2019-08-27] MEDS ORDERED: AFLURIA II4 or FLUARIX II4 IM ONE (14:35)
[2019-08-27] MEDS ORDERED: PREVNAR 13 IM ONE (14:35)
[2019-08-27] MEDS: ROCEPHIN VIAL 1 GRAM 1 G in NS 100 ML IV + SPIKE MINIBAG* 100 ML IV SCH (18:44)
[2019-08-28 04:58] LABS: BASOPHILS % (AUTO) 0.4 % (0.2-1.0); EOSINOPHILS # (AUTO) 0.1 x10^3/uL (0.0-0.2); EOSINOPHILS % (AUTO) 1.3 % (0.9-2.9); HEMATOCRIT 37.4 % (36.0-47.0); HEMOGLOBIN 12.3 g/dL (12.0-16.0); LYMPHOCYTES # (AUTO) 0.8 X10^3/uL (1.3-2.9); LYMPHOCYTES % (AUTO) 13.3 % (21.0-51.0); MEAN CORPUSCULAR HEMOGLOBIN 29.5 pg (27.0-34.0); MEAN CORPUSCULAR HGB CONC 32.9 g/dL (33.0-35.0); MEAN CORPUSCULAR VOLUME 89.7 fL (80.0-100.0); MEAN PLATELET VOLUME 10.1 fL (7.4-11.0); MONOCYTES # (AUTO) 0.7 x10^3/uL (0.3-0.8); MONOCYTES % (AUTO) 10.8 % (0.0-13.0); NEUTROPHILS # (AUTO) 4.6 x10^3/uL (2.2-4.8); NEUTROPHILS % (AUTO) 74.2 % (42.0-75.0); PLATELET COUNT 86 X10^3/uL (150.0-450.0); RED BLOOD COUNT 4.17 X10^6/uL (3.5-5.4); RED CELL DISTRIBUTION WIDTH 15.2 % (11.6-16.5); WHITE BLOOD COUNT 6.1 X10^3/uL (3.6-10.0)
[2019-08-28 05:15] LABS: ALANINE AMINOTRANSFERASE 26 Units/L (12-78); ALBUMIN 2.3 g/dL (3.4-5.0); ALKALINE PHOSPHATASE 75 Units/L (46-116); ASPARTATE AMINO TRANSFERASE 30 Units/L (15-37); BLOOD UREA NITROGEN 18 mg/dL (7-18); CARBON DIOXIDE 31.2 mmol/L (21-32); CHLORIDE 100 mmol/L (98-107); COR CA(FOR HYPOALB) 9.4 mg/dL (8.5-10.1); COR NA(FOR HYPERGLY) 139 mmol/L (136-145); CREATININE 0.66 mg/dL (0.55-1.02); SODIUM 134 mmol/L (136-145); TOTAL PROTEIN 6.9 g/dL (6.4-8.2); eGFR NON BLACK RACES > 60 (>60)
[2019-08-28] MEDS: TYLENOL 500 MG TAB EXTRA STRENGTH PO PRN ×3 (05:24→22:50)
[2019-08-28] MEDS: HumuLIN R SC PRN ×4 (05:56→21:45)
[2019-08-28] MEDS: NS 1000 ML 1,000 ML IV SCH ×3 (05:58→15:14)
--- NOTE | 2019-08-28 06:30 | RAD ---
CHEST, 1 VIEWHISTORY: SOBStudy: Single view of the chest.Comparison:August 26, 2019Findings:Cardiomegaly. No change in the appearance of bilateral interstitial prominence. Osseous structures demonstrate no acute abnormality.IMPRESSION:1. No change from prior.Electronically signed by: ISAAC PADILLA (Aug 28, 2019 06:29:24)
[2019-08-28] MEDS: VIBRAMYCIN 100 MG in D5W 250 ML IV 250 ML IV SCH ×2 (08:21→21:45)
[2019-08-28] MEDS: LOVENOX INJ 40 MG SYR SC SCH (08:46)
[2019-08-28] MEDS ORDERED: LEVAQUIN TAB 750 MG PO SCH (09:00)
[2019-08-28] MEDS: NYSTATIN POWDER TOP SCH ×2 (10:08→21:45)
--- NOTE | 2019-08-28 10:17 | PCM.PROG ---
Progress Note Progress Note for Day of Date of Exam: 08/28/19 Subjective Subjective: Pt is a 53 y/o f pmhx DMT2, Fibromyalgia, MDD admitted for pneumonia, cystitis. This morning she reports some improvement but continues to have chest pain. Labs/imaging: Wbc 6.1, Hgb 12.3, Plt 86, Na 139, K 4.5, Cr 0.66, Gluc 304, A1c:10.5, UrineCx: >100K gram negative rods. BloodCx:NGTD. COVID negative(08/25)>repeat pending, CXR: no change from prior which was questionable L perihilar and L basilar infiltrate. Due to oxygen requirement and chest pain, will get CTA to evaluate and rule out PE. Add on metformin and Duonebs. Continue IVF NS@80ml/h, SSI, Abx: Rocephin+Doxycycline, supplemental O2, pneumonia protocol. Will continue to monitor and follow up labs/imaging in the morning. Past Medical Family Social History Past Med/Fam/Surg Hx: No changes since H&P Allergies: Allergies clarithromycin [From Biaxin] Allergy (Verified 11/27/16 10:39) codeine Allergy (Verified 11/27/16 10:39) latex Allergy (Verified 11/27/16 10:39) Review of Systems ROS: No change since H&P Vital Signs and I&O's Vital Signs: Temperature 97.8 F Pulse Rate 89 Respiratory Rate 16 Blood Pressure [Left Arm] 133/80 Blood Pressure 122/64 O2 Sat by Pulse Oximetry 95 Intake and Output: Intake & Output 08/25/19 08/26/19 08/27/19 08/28/19 23:59 23:59 23:59 23:59 Intake Total 2306 / 2306 1550 / 1550 Output Total 1720 / 1720 1500 / 1500 Balance 586 / 586 50 / 50 Physical Exam Oriented: Normal Eyes: Normal Ear: Normal Nose: Normal Throat: Normal Respiratory: Diminished Cardiovascular: Normal : Dysuria Auscultation: Bowel Sounds: Normal Tenderness: Normal Skin: Rash (lower abdominal folds) Musculoskeletal: Normal Psychiatric: Normal Mood Description: Calm Speech Pattern: Clear Laboratory and Diagnostics Result Diagrams: 08/28/19 04:40 08/28/19 04:40 Labs: 08/26/19 20:10 Blood Blood Culture - Preliminary 08/26/19 18:20 Blood Blood Culture - Preliminary 08/26/19 18:49 Urine,Catheterized Urine Culture - Preliminary Laboratory WBC 6.1 X10^3/uL (3.6-10.0) 08/28/19 04:40 RBC 4.17 X10^6/uL (3.5-5.4) 08/28/19 04:40 Hgb 12.3 g/dL (12.0-16.0) 08/28/19 04:40 Hct 37.4 % (36.0-47.0) 08/28/19 04:40 MCV 89.7 fL (80.0-100.0) 08/28/19 04:40 MCH 29.5 pg (27.0-34.0) 08/28/19 04:40 MCHC 32.9 g/dL (33.0-35.0) L 08/28/19 04:40 RDW 15.2 % (11.6-16.5) 08/28/19 04:40 Plt Count 86 X10^3/uL (150.0-450.0) L 08/28/19 04:40 MPV 10.1 fL (7.4-11.0) 08/28/19 04:40 Neut % (Auto) 74.2 % (42.0-75.0) 08/28/19 04:40 Lymph % (Auto) 13.3 % (21.0-51.0) L 08/28/19 04:40 [place] % (Auto) 10.8 % (0.0-13.0) 08/28/19 04:40 Eos % (Auto) 1.3 % (0.9-2.9) 08/28/19 04:40 Baso % (Auto) 0.4 % (0.2-1.0) 08/28/19 04:40 Neut # (Auto) 4.6 x10^3/uL (2.2-4.8) 08/28/19 04:40 Lymph # (Auto) 0.8 X10^3/uL (1.3-2.9) L 08/28/19 04:40 [place] # (Auto) 0.7 x10^3/uL (0.3-0.8) 08/28/19 04:40 Eos # (Auto) 0.1 x10^3/uL (0.0-0.2) 08/28/19 04:40 Baso # (Auto) 0.0 X10^3/uL (0.0-0.1) 08/28/19 04:40 Absolute Nucleated RBC 0.1 /100WBC 08/28/19 04:40 Sample Site Rr 08/26/19 18:15 ABG pH 7.500 (7.35-7.45) H 08/26/19 18:15 ABG pCO2 32.0 mmHg (35.0-45.0) L 08/26/19 18:15 ABG pO2 63.0 mmHg (80.0-100.0) L 08/26/19 18:15 ABG HCO3 25.0 mmol/L (22-26) 08/26/19 18:15 ABG O2 Saturation 94.0 % (90-100) 08/26/19 18:15 ABG Base Excess 2.3 mmol/L (-2.0-2.0) H 08/26/19 18:15 Eloy Test Pos 08/26/19 18:15 A-a Gradient 47.0 mmHg 08/26/19 18:15 FiO2 21.0 08/26/19 18:15 Blood Gas Comments Pt demetria well. elj/cdn 08/26/19 18:15 Sodium 134 mmol/L (136-145) L 08/28/19 04:40 Corrected Sodium 139 mmol/L (136-145) 08/28/19 04:40 Potassium 4.5 mmol/L (3.5-5.1) 08/28/19 04:40 Chloride 100 mmol/L (98-107) 08/28/19 04:40 Carbon Dioxide 31.2 mmol/L (21-32) 08/28/19 04:40 BUN 18 mg/dL (7-18) 08/28/19 04:40 Creatinine 0.66 mg/dL (0.55-1.02) 08/28/19 04:40 Est GFR (MDRD) Af Amer > 60 (>60) 08/28/19 04:40 Est GFR (MDRD) Non-Af > 60 (>60) 08/28/19 04:40 Glucose 304 mg/dL (65-99) H 08/28/19 04:40 Hemoglobin A1c 10.5 % 08/27/19 05:10 Lactic Acid 1.3 mmol/L (0.4-2.0) 08/27/19 06:31 Calcium 8.0 mg/dL (8.5-10.1) L 08/28/19 04:40 Corrected Calcium 9.4 mg/dL (8.5-10.1) 08/28/19 04:40 Magnesium 1.4 mg/dL (1.7-2.9) L 08/26/19 19:25 Total Bilirubin 0.80 mg/dL (0.2-1.0) 08/28/19 04:40 AST 30 Units/L (15-37) 08/28/19 04:40 ALT 26 Units/L (12-78) 08/28/19 04:40 Alkaline Phosphatase 75 Units/L (46-116) 08/28/19 04:40 Creatine Kinase 80 Units/L (26-192) 08/26/19 19:25 CK-MB (CK-2) < 1.0 ng/mL (0-4.0) 08/26/19 19:25 CK/CKMB % Calc 1.3 % (<4) 08/26/19 19:25 Troponin I 0.02 ng/mL (0-1.5) 08/26/19 19:25 C-Reactive Protein 246.40 mg/L (0-3.0) H 08/27/19 05:10 Total Protein 6.9 g/dL (6.4-8.2) 08/28/19 04:40 Albumin 2.3 g/dL (3.4-5.0) L 08/28/19 04:40 Globulin 4.6 g/dL (2.5-4.5) H 08/28/19 04:40 Albumin/Globulin Ratio 0.5 Ratio (1.1-2.1) L 08/28/19 04:40 Specimen Type Catherized urine 08/26/19 18:49 Urine Color [place] (YELLOW) 08/26/19 18:49 Urine Appearance Slightly hazy (CLEAR) 08/26/19 18:49 Urine pH 6.0 (5.0 - 8.0) 08/26/19 18:49 Ur Specific [place] 1.015 (1.000-1.030) 08/26/19 18:49 Urine Protein 4+ (NEGATIVE) 08/26/19 18:49 Urine Glucose (UA) 4+ (NEGATIVE) 08/26/19 18:49 Urine Ketones 2+ (NEGATIVE) 08/26/19 18:49 Urine Occult Blood 3+ (NEGATIVE) 08/26/19 18:49 Urine Nitrite Positive (NEGATIVE) 08/26/19 18:49 Urine Bilirubin 2+ (NEGATIVE) 08/26/19 18:49 Urine Urobilinogen 2+ (NORMAL) 08/26/19 18:49 Ur Leukocyte Esterase 1+ (NEGATIVE) 08/26/19 18:49 Urine RBC 3-5 /HPF (0-3) A 08/26/19 18:49 Urine WBC 3-5 /HPF (0-5) 08/26/19 18:49 Ur Squamous Epith Cells Few /HPF (NEGATIVE) 08/26/19 18:49 Urine Bacteria 1+ /HPF (NEGATIVE) 08/26/19 18:49 Ur Culture Indicated? Yes/culture set up 08/26/19 18:49 Influenza Type A Ag Negative-presumptive (NEGATIVE) 08/26/19 18:48 Influenza Type B Ag Negative-presumptive (NEGATIVE) 08/26/19 18:48 Mycoplasma pneumon IgG Negative (NEGATIVE) 08/26/19 19:25 SARS-CoV-2 (PCR) Negative (NEGATIVE) 08/26/19 18:35 Plan (1) Pneumonia: Status: Acute Plan: Repeat COVID pending Pneumonia protocol, supplemental O2 (2) Cystitis: Status: Acute Plan: Rocephin UrineCx pending (3) Intertrigo: Status: Acute Plan: Nystatin powder (4) Diabetes mellitus: Status: Acute Plan: SSI, A1c 10.5 Add metformin 500mg BID. (5) Hypoxia: Status: Acute (6) Hyperglycemia: Status: Acute
--- NOTE | 2019-08-28 10:47 | CT ---
CTA CHESTCLINICAL INDICATION: Sepsis in thePROCEDURE: Non gated axial images of the chest were obtained with intravenous contrast according to pulmonary embolism protocol. MIPS were reconstructed Dose reduction techniques including Automated Exposure Control (AEC) and adjustment of mA and kV were utlized.COMPARISON:NoneFINDINGS:For pulmonary arterial opacification. No evidence of a pulmonary embolism to the level of the bilateral main and proximal lobar pulmonary arteries. More distal pulmonary emboli cannot be excluded.The heart is normal in size . No pericardial effusion . No suspicious mediastinal or axillary lymph nodes . No focal consolidations, pleural effusions or pneumothorax.Subsegmental atelectasis of the lung bases.Airways are patent . No suspicious pulmonary nodules or masses .Hepatosplenomegaly.No aggressive osseous lesions.IMPRESSION:1. No evidence of large central, main or proximal lobar pulmonary emboli. More distal pulmonary emboli cannot be excluded.Electronically signed by: ISAAC PADILLA (Aug 28, 2019 10:46:20)
[2019-08-28] MEDS: DUONEB 0.5 MG/3 MG (3 mL) NEB SCH ×2 (12:13→17:05)
[2019-08-28] MEDS: ROCEPHIN VIAL 1 GRAM 1 G in NS 100 ML IV + SPIKE MINIBAG* 100 ML IV SCH ×2 (16:58→18:21)
[2019-08-28] MEDS ORDERED: GLUCOPHAGE PO SCH (17:00)
[2019-08-28] MEDS ORDERED: COLACE CAP 100 MG PO SCH (21:00)
[2019-08-28] MEDS ORDERED: MILK OF MAGNESIA PO SCH (21:00)
[2019-08-29] MEDS: DUONEB 0.5 MG/3 MG (3 mL) NEB SCH ×2 (01:42→06:00)
[2019-08-29] MEDS: NS 1000 ML 1,000 ML IV SCH ×2 (03:51→06:09)
[2019-08-29 05:43] LABS: BASOPHILS % (AUTO) 0.5 % (0.2-1.0); EOSINOPHILS # (AUTO) 0.1 x10^3/uL (0.0-0.2); EOSINOPHILS % (AUTO) 1.7 % (0.9-2.9); HEMATOCRIT 35.2 % (36.0-47.0); HEMOGLOBIN 11.8 g/dL (12.0-16.0); LYMPHOCYTES # (AUTO) 1.1 X10^3/uL (1.3-2.9); LYMPHOCYTES % (AUTO) 18.8 % (21.0-51.0); MEAN CORPUSCULAR HEMOGLOBIN 29.7 pg (27.0-34.0); MEAN CORPUSCULAR HGB CONC 33.5 g/dL (33.0-35.0); MEAN CORPUSCULAR VOLUME 88.7 fL (80.0-100.0); MEAN PLATELET VOLUME 9.8 fL (7.4-11.0); MONOCYTES # (AUTO) 0.6 x10^3/uL (0.3-0.8); MONOCYTES % (AUTO) 10.1 % (0.0-13.0); NEUTROPHILS % (AUTO) 68.9 % (42.0-75.0); PLATELET COUNT 81 X10^3/uL (150.0-450.0); RED BLOOD COUNT 3.97 X10^6/uL (3.5-5.4); RED CELL DISTRIBUTION WIDTH 15.2 % (11.6-16.5); WHITE BLOOD COUNT 5.8 X10^3/uL (3.6-10.0)
[2019-08-29 05:47] LABS: ALANINE AMINOTRANSFERASE 17 Units/L (12-78); ALBUMIN 2.2 g/dL (3.4-5.0); ALKALINE PHOSPHATASE 89 Units/L (46-116); ASPARTATE AMINO TRANSFERASE 38 Units/L (15-37); BLOOD UREA NITROGEN 11 mg/dL (7-18); CALCIUM 7.9 mg/dL (8.5-10.1); CARBON DIOXIDE 30.2 mmol/L (21-32); CHLORIDE 101 mmol/L (98-107); COR CA(FOR HYPOALB) 9.3 mg/dL (8.5-10.1); COR NA(FOR HYPERGLY) 139 mmol/L (136-145); CREATININE 0.49 mg/dL (0.55-1.02); SODIUM 134 mmol/L (136-145); eGFR NON BLACK RACES > 60 (>60)
[2019-08-29 06:09] LABS: BAND NEUTROPHILS % 8 % (0-10)
[2019-08-29 06:10] LABS: PLATELET MORPHOLOGY COMMENT NORMAL (NORMAL)
--- NOTE | 2019-08-29 08:34 | W.DIS.FURT ---
Summary of Discharge Discharge Summary of Date Date of Exam: 08/29/19 Admission Date Date of Admission: 08/27/19 Admission Diagnosis Hospital Course: Pt is a 53 y/o f pmhx DMT2, Fibromyalgia, MDD admitted for pneumonia, cystitis. Her UrineCx:positive Klebsiella pne. BloodCx:NGTD. COVID negative x2, CXR: no change from prior which was questionable L perihilar and L basilar infiltrate. CT negative for acute findings. She was treated with bronchodilators, Abx: Rocephin+Doxycycline, supplemental O2, pneumonia protocol. She was started on metformin for diabetes. On day of discharge patient's symptoms significantly improved, she did not require supplemental oxygen. She was discharged with keflex and instructed to complete course and follow up with pcp in 1 week. Vital Signs: Vital Signs (72 hours) 08/26/19 17:52 08/26/19 17:56 08/26/19 17:59 Temperature 100.1 F H Pulse Rate 145 H 128 H Respiratory Rate 30 H Blood Pressure 139/65 143/71 Blood Pressure [Left Arm] O2 Sat by Pulse Oximetry 93 L 95 08/26/19 18:00 08/26/19 18:17 08/26/19 18:39 Temperature Pulse Rate 128 H 136 H 144 H Respiratory Rate 33 H Blood Pressure 151/68 Blood Pressure [Left Arm] O2 Sat by Pulse Oximetry 98 08/26/19 18:45 08/26/19 18:48 08/26/19 19:00 Temperature 103 F H Pulse Rate 145 H 143 H Respiratory Rate Blood Pressure Blood Pressure [Left Arm] O2 Sat by Pulse Oximetry 91 L 94 L 08/26/19 22:44 08/26/19 23:57 08/27/19 01:18 Temperature 97.8 F Pulse Rate 105 H 94 H Respiratory Rate 20 Blood Pressure 102/61 Blood Pressure [Left Arm] 133/80 O2 Sat by Pulse Oximetry 100 98 08/27/19 01:19 08/27/19 02:00 08/27/19 03:00 Temperature Pulse Rate 96 H 85 89 Respiratory Rate 21 18 19 Blood Pressure 104/60 101/62 Blood Pressure [Left Arm] O2 Sat by Pulse Oximetry 100 100 100 08/27/19 04:00 08/27/19 05:00 08/27/19 06:00 Temperature Pulse Rate 87 87 94 H Respiratory Rate 19 16 17 Blood Pressure 107/60 Blood Pressure [Left Arm] O2 Sat by Pulse Oximetry 100 100 100 08/27/19 06:01 08/27/19 07:00 08/27/19 08:00 Temperature 97.8 F Pulse Rate 89 82 88 Respiratory Rate 20 17 20 Blood Pressure 114/63 109/59 Blood Pressure [Left Arm] O2 Sat by Pulse Oximetry 100 100 100 08/27/19 09:00 08/27/19 09:53 08/27/19 10:00 Temperature Pulse Rate 88 94 H Respiratory Rate 19 18 16 Blood Pressure 108/58 Blood Pressure [Left Arm] O2 Sat by Pulse Oximetry 100 100 08/27/19 10:53 08/27/19 11:00 08/27/19 12:00 Temperature 98.4 F Pulse Rate 94 H 91 H Respiratory Rate 20 19 24 Blood Pressure 107/55 Blood Pressure [Left Arm] O2 Sat by Pulse Oximetry 100 100 08/27/19 13:00 08/27/19 13:52 08/27/19 14:00 Temperature Pulse Rate 96 H 85 Respiratory Rate 19 18 16 Blood Pressure 109/58 Blood Pressure [Left Arm] O2 Sat by Pulse Oximetry 98 100 08/27/19 14:52 08/27/19 15:00 08/27/19 16:00 Temperature 98.8 F Pulse Rate 89 87 Respiratory Rate 20 18 16 Blood Pressure 105/66 Blood Pressure [Left Arm] O2 Sat by Pulse Oximetry 100 100 08/27/19 17:00 08/27/19 17:30 08/27/19 18:00 Temperature Pulse Rate 93 H 96 H 96 H Respiratory Rate 19 24 24 Blood Pressure 111/60 117/69 Blood Pressure [Left Arm] O2 Sat by Pulse Oximetry 94 L 98 97 08/27/19 18:30 08/27/19 18:46 08/27/19 19:00 Temperature Pulse Rate 96 H 106 H Respiratory Rate 22 20 35 H Blood Pressure 113/62 Blood Pressure [Left Arm] O2 Sat by Pulse Oximetry 99 97 08/27/19 19:14 08/27/19 19:31 08/27/19 19:46 Temperature 99.1 F Pulse Rate 97 H 99 H Respiratory Rate 20 20 18 Blood Pressure 117/56 110/57 Blood Pressure [Left Arm] O2 Sat by Pulse Oximetry 97 97 08/27/19 20:00 08/27/19 20:31 08/27/19 21:00 Temperature Pulse Rate 97 H 95 H 93 H Respiratory Rate 24 17 20 Blood Pressure 117/61 118/57 118/66 Blood Pressure [Left Arm] O2 Sat by Pulse Oximetry 95 95 96 08/27/19 21:30 08/27/19 22:00 08/27/19 22:01 Temperature Pulse Rate 91 H 94 H 93 H Respiratory Rate 17 18 19 Blood Pressure 105/66 92/66 Blood Pressure [Left Arm] O2 Sat by Pulse Oximetry 96 93 L 94 L 08/27/19 22:31 08/27/19 23:00 08/27/19 23:30 Temperature Pulse Rate 93 H 97 H 100 H Respiratory Rate 17 18 17 Blood Pressure 120/59 117/59 116/57 Blood Pressure [Left Arm] O2 Sat by Pulse Oximetry 96 99 96 08/28/19 00:00 08/28/19 00:30 08/28/19 01:00 Temperature 97.6 F Pulse Rate 96 H 93 H 92 H Respiratory Rate 26 H 26 H 27 H Blood Pressure 114/60 113/59 111/61 Blood Pressure [Left Arm] O2 Sat by Pulse Oximetry 97 98 98 08/28/19 01:30 08/28/19 02:00 08/28/19 02:30 Temperature Pulse Rate 96 H 96 H 97 H Respiratory Rate 22 19 22 Blood Pressure 117/63 108/56 117/64 Blood Pressure [Left Arm] O2 Sat by Pulse Oximetry 94 L 97 97 08/28/19 03:00 08/28/19 03:30 08/28/19 04:00 Temperature 98.4 F Pulse Rate 91 H 92 H 86 Respiratory Rate 22 21 19 Blood Pressure 108/59 107/56 101/58 Blood Pressure [Left Arm] O2 Sat by Pulse Oximetry 99 98 99 08/28/19 04:30 08/28/19 05:00 08/28/19 05:01 Temperature Pulse Rate 94 H 83 81 Respiratory Rate 16 14 19 Blood Pressure 135/70 109/57 Blood Pressure [Left Arm] O2 Sat by Pulse Oximetry 99 98 99 08/28/19 05:24 08/28/19 05:30 08/28/19 06:00 Temperature Pulse Rate 93 H 94 H Respiratory Rate 20 17 18 Blood Pressure 97/62 102/62 Blood Pressure [Left Arm] O2 Sat by Pulse Oximetry 92 L 92 L 07/02/20 06:24 08/28/19 06:30 08/28/19 07:00 Temperature Pulse Rate 92 H 92 H Respiratory Rate 18 18 18 Blood Pressure 109/66 119/66 Blood Pressure [Left Arm] O2 Sat by Pulse Oximetry 94 L 93 L 08/28/19 07:30 08/28/19 08:00 08/28/19 08:30 Temperature 97.8 F Pulse Rate 95 H 89 88 Respiratory Rate 18 16 24 Blood Pressure 122/64 122/64 101/58 Blood Pressure [Left Arm] O2 Sat by Pulse Oximetry 82 L 95 95 08/28/19 08:42 08/28/19 09:00 08/28/19 10:29 Temperature Pulse Rate 83 84 92 H Respiratory Rate 20 17 Blood Pressure 114/64 123/62 Blood Pressure [Left Arm] O2 Sat by Pulse Oximetry 95 96 96 08/28/19 10:30 08/28/19 11:00 08/28/19 11:30 Temperature 99.2 F Pulse Rate 89 86 86 Respiratory Rate 19 20 Blood Pressure 119/66 112/67 112/67 Blood Pressure [Left Arm] O2 Sat by Pulse Oximetry 98 97 94 L 08/28/19 12:00 08/28/19 12:13 08/28/19 12:14 Temperature Pulse Rate 90 88 Respiratory Rate 18 22 Blood Pressure 124/66 Blood Pressure [Left Arm] O2 Sat by Pulse Oximetry 92 L 95 08/28/19 12:30 08/28/19 13:00 08/28/19 13:14 Temperature Pulse Rate 88 96 H Respiratory Rate 23 25 H 22 Blood Pressure 115/63 114/69 Blood Pressure [Left Arm] O2 Sat by Pulse Oximetry 94 L 96 08/28/19 13:30 08/28/19 14:00 08/28/19 14:30 Temperature Pulse Rate 94 H 85 90 Respiratory Rate 21 0 L 42 H Blood Pressure 113/65 110/59 106/57 Blood Pressure [Left Arm] O2 Sat by Pulse Oximetry 94 L 95 96 08/28/19 15:00 08/28/19 15:30 08/28/19 16:00 Temperature 99.8 F H Pulse Rate 91 H 88 84 Respiratory Rate 33 H 36 H 25 H Blood Pressure 114/64 103/56 112/66 Blood Pressure [Left Arm] O2 Sat by Pulse Oximetry 97 96 98 08/28/19 16:30 08/28/19 17:05 08/28/19 20:00 Temperature 98.7 F Pulse Rate 84 82 87 Respiratory Rate 41 H 27 H Blood Pressure 106/63 112/66 Blood Pressure [Left Arm] O2 Sat by Pulse Oximetry 98 100 98 08/28/19 22:50 08/28/19 23:50 08/29/19 00:00 Temperature 99.0 F Pulse Rate 88 Respiratory Rate 23 23 21 Blood Pressure 110/55 Blood Pressure [Left Arm] O2 Sat by Pulse Oximetry 95 08/29/19 04:00 08/29/19 06:30 Temperature 98.5 F Pulse Rate 78 92 H Respiratory Rate 22 Blood Pressure 105/51 Blood Pressure [Left Arm] O2 Sat by Pulse Oximetry 96 92 L Labs: Laboratory Last Values WBC 5.8 X10^3/uL (3.6-10.0) 08/29/19 04:59 RBC 3.97 X10^6/uL (3.5-5.4) 08/29/19 04:59 Hgb 11.8 g/dL (12.0-16.0) L 08/29/19 04:59 Hct 35.2 % (36.0-47.0) L 08/29/19 04:59 MCV 88.7 fL (80.0-100.0) 08/29/19 04:59 MCH 29.7 pg (27.0-34.0) 08/29/19 04:59 MCHC 33.5 g/dL (33.0-35.0) 08/29/19 04:59 RDW 15.2 % (11.6-16.5) 08/29/19 04:59 Plt Count 81 X10^3/uL (150.0-450.0) L 08/29/19 04:59 Plt Count Comment Decreased (ADEQUATE) A 08/29/19 04:59 MPV 9.8 fL (7.4-11.0) 08/29/19 04:59 Neut % (Auto) 68.9 % (42.0-75.0) 08/29/19 04:59 Lymph % (Auto) 18.8 % (21.0-51.0) L 08/29/19 04:59 [place] % (Auto) 10.1 % (0.0-13.0) 08/29/19 04:59 Eos % (Auto) 1.7 % (0.9-2.9) 08/29/19 04:59 Baso % (Auto) 0.5 % (0.2-1.0) 08/29/19 04:59 Neut # (Auto) 4.0 x10^3/uL (2.2-4.8) 08/29/19 04:59 Lymph # (Auto) 1.1 X10^3/uL (1.3-2.9) L 08/29/19 04:59 [place] # (Auto) 0.6 x10^3/uL (0.3-0.8) 08/29/19 04:59 Eos # (Auto) 0.1 x10^3/uL (0.0-0.2) 08/29/19 04:59 Baso # (Auto) 0.0 X10^3/uL (0.0-0.1) 08/29/19 04:59 Absolute Nucleated RBC 0.2 /100WBC 08/29/19 04:59 Total Counted 100 08/29/19 04:59 Neutrophils % (Manual) 65 % (39-76) 08/29/19 04:59 Band Neutrophils % 8 % (0-10) 08/29/19 04:59 Lymphocytes % (Manual) 18 % (13-43) 08/29/19 04:59 Monocytes % (Manual) 8 % (4-9) 08/29/19 04:59 Eosinophils % (Manual) 1 % (0-6) 08/29/19 04:59 Plt Morphology Comment Normal (NORMAL) 08/29/19 04:59 RBC Morphology Normal (NORMAL) 08/29/19 04:59 Sample Site Rr 08/26/19 18:15 ABG pH 7.500 (7.35-7.45) H 08/26/19 18:15 ABG pCO2 32.0 mmHg (35.0-45.0) L 08/26/19 18:15 ABG pO2 63.0 mmHg (80.0-100.0) L 08/26/19 18:15 ABG HCO3 25.0 mmol/L (22-26) 08/26/19 18:15 ABG O2 Saturation 94.0 % (90-100) 08/26/19 18:15 ABG Base Excess 2.3 mmol/L (-2.0-2.0) H 08/26/19 18:15 [place] Test Pos 08/26/19 18:15 A-a Gradient 47.0 mmHg 08/26/19 18:15 FiO2 21.0 08/26/19 18:15 Blood Gas Comments Pt demetria well. elj/cdn 08/26/19 18:15 Sodium 134 mmol/L (136-145) L 08/29/19 04:59 Corrected Sodium 139 mmol/L (136-145) 08/29/19 04:59 Potassium 4.9 mmol/L (3.5-5.1) 08/29/19 04:59 Chloride 101 mmol/L (98-107) 08/29/19 04:59 Carbon Dioxide 30.2 mmol/L (21-32) 08/29/19 04:59 BUN 11 mg/dL (7-18) 08/29/19 04:59 Creatinine 0.49 mg/dL (0.55-1.02) L 08/29/19 04:59 Est GFR (MDRD) Af Amer > 60 (>60) 08/29/19 04:59 Est GFR (MDRD) Non-Af > 60 (>60) 08/29/19 04:59 Glucose 310 mg/dL (65-99) H 08/29/19 04:59 Hemoglobin A1c 10.5 % 08/27/19 05:10 Lactic Acid 1.3 mmol/L (0.4-2.0) 08/27/19 06:31 Calcium 7.9 mg/dL (8.5-10.1) L 08/29/19 04:59 Corrected Calcium 9.3 mg/dL (8.5-10.1) 08/29/19 04:59 Magnesium 1.4 mg/dL (1.7-2.9) L 08/26/19 19:25 Total Bilirubin 0.60 mg/dL (0.2-1.0) 08/29/19 04:59 AST 38 Units/L (15-37) H 08/29/19 04:59 ALT 17 Units/L (12-78) 08/29/19 04:59 Alkaline Phosphatase 89 Units/L (46-116) 08/29/19 04:59 Creatine Kinase 80 Units/L (26-192) 08/26/19 19:25 CK-MB (CK-2) < 1.0 ng/mL (0-4.0) 08/26/19 19:25 CK/CKMB % Calc 1.3 % (<4) 08/26/19 19:25 Troponin I 0.02 ng/mL (0-1.5) 08/26/19 19:25 C-Reactive Protein 246.40 mg/L (0-3.0) H 08/27/19 05:10 Total Protein 7.0 g/dL (6.4-8.2) 08/29/19 04:59 Albumin 2.2 g/dL (3.4-5.0) L 08/29/19 04:59 Globulin 4.8 g/dL (2.5-4.5) H 08/29/19 04:59 Albumin/Globulin Ratio 0.5 Ratio (1.1-2.1) L 08/29/19 04:59 Specimen Type Catherized urine 08/26/19 18:49 Urine Color [place] (YELLOW) 08/26/19 18:49 Urine Appearance Slightly hazy (CLEAR) 08/26/19 18:49 Urine pH 6.0 (5.0 - 8.0) 08/26/19 18:49 Ur Specific [place] 1.015 (1.000-1.030) 08/26/19 18:49 Urine Protein 4+ (NEGATIVE) 08/26/19 18:49 Urine Glucose (UA) 4+ (NEGATIVE) 08/26/19 18:49 Urine Ketones 2+ (NEGATIVE) 08/26/19 18:49 Urine Occult Blood 3+ (NEGATIVE) 08/26/19 18:49 Urine Nitrite Positive (NEGATIVE) 08/26/19 18:49 Urine Bilirubin 2+ (NEGATIVE) 08/26/19 18:49 Urine Urobilinogen 2+ (NORMAL) 08/26/19 18:49 Ur Leukocyte Esterase 1+ (NEGATIVE) 08/26/19 18:49 Urine RBC 3-5 /HPF (0-3) A 08/26/19 18:49 Urine WBC 3-5 /HPF (0-5) 08/26/19 18:49 Ur Squamous Epith Cells Few /HPF (NEGATIVE) 08/26/19 18:49 Urine Bacteria 1+ /HPF (NEGATIVE) 08/26/19 18:49 Ur Culture Indicated? Yes/culture set up 08/26/19 18:49 Influenza Type A Ag Negative-presumptive (NEGATIVE) 08/26/19 18:48 Influenza Type B Ag Negative-presumptive (NEGATIVE) 08/26/19 18:48 Mycoplasma pneumon IgG Negative (NEGATIVE) 08/26/19 19:25 SARS-CoV-2 (PCR) Negative (NEGATIVE) 08/26/19 18:35 Reason For Visit: SEPSIS,UTI,LT BASILAR PNEUMONIA,HYPOXIA, Discharge Date Discharge Date: 08/29/19 Discharge Diagnosis All Active Problems (Updated 08/29/19 @ 12:40 by Mesha Holland) Hypoxia (Acute) Pneumonia involving left lung (Acute) Sepsis (Acute) Pneumonia (Acute) Diabetes mellitus (Acute) Intertrigo (Acute) Hyperglycemia (Acute) Cystitis (Acute) Hyponatremia (Acute) CHF (congestive heart failure) (Chronic) Plan of Treatment: Continue with present treatment and follow up plan. Pt is to keep follow up appointment as instructed and take medications as ordered. Discharge Medications Discharge Medications: clarithromycin [From Biaxin] Allergy (Verified 11/27/16 10:39) codeine Allergy (Verified 11/27/16 10:39) latex Allergy (Verified 11/27/16 10:39) CONTINUE taking the following medications tramadol [Ultram] 50 mg PO BID PRN 08/28/19 [History] Discharge Disposition Discharge Disposition: Home Discharge Condition: Stable
[2019-08-29] MEDS: LOVENOX INJ 40 MG SYR SC SCH (09:00)
[2019-08-29] MEDS: VIBRAMYCIN 100 MG in D5W 250 ML IV 250 ML IV SCH (09:00)
[2019-08-29 11:28] VITALS: BP 114/57
[2019-08-29] MEDS: NYSTATIN POWDER TOP SCH (12:30)
== END 2019-08-29 13:10 | disposition home or self-care (01) | DRG 194 ==
LOC: ER 17:49 → OBS 23:14 → ICU 08-27 00:16
PROVIDERS: ADMIT Internal Medicine; ATTEND Internal Medicine
CPT/HCPCS: 36415; 36600; 51702; 71010; 71045; 71275; 80053; 81001; 82550; 82553; 82803; 83036; 83605; 83735; 84484; 85025; 86140; 86738; 87040; 87086; 87088; 87186; 87400; 87635; 87804; 90670; 93005; 94640; 96365; 96367; 96374; 97167; 97530; 99284; A4216; A4222; J0696; J1650; J1815; J2405; J3490; J7030; J7050; J7060; J7620